=== PATIENT | male | born 1990 | race Caucasian/White ===

== ENCOUNTER 2018-05-29 19:07 | Emergency (ER) | payer MEDICAID, OTHER ==
[~2018-05-29] VITALS: Ht 175.3 cm; Wt 79.5 kg
[~2018-05-29 19:07] MED LIST: OTC DECONGESTANT
[2018-05-29 19:45] LABS: APPEARANCE,URINE CLEAR (CLEAR); BILIRUBIN,URINE NEGATIVE (NEGATIVE); GLUCOSE, URINE (UA) NEGATIVE (NEGATIVE); KETONES,URINE NEGATIVE (NEGATIVE); LEUKOCYTE ESTERASE ,URINE NEGATIVE (NEGATIVE); NITRATE,URINE NEGATIVE (NEGATIVE); OCCULT BLOOD,URINE NEGATIVE (NEGATIVE); PROTEIN,URINE NEGATIVE (NEGATIVE); UROBILINOGEN,URINE 0.2 mg/dL (<=1.0)
[2018-05-29 19:58] VITALS: BP 135/86
[2018-05-29] MEDS ORDERED: AZITHROMYCIN 250 MG TABLET PO ONE (20:00)
[2018-05-29] MEDS ORDERED: CefTRIAXone SODIUM 1 GM/VIAL IM ONE (20:00)
== END 2018-05-29 20:59 | disposition home or self-care (01) ==
LOC: EMS 19:08
DX: N34.2 Other urethritis (principal); F17.210 Nicotine dependence, cigarettes, uncomplicated
CPT/HCPCS: 81003; 87491; 87591; 96372; 99284; J0696